=== PATIENT | female | born 1935 | race Caucasian/White ===

== ENCOUNTER 2016-10-19 17:52 | Inpatient (IN) | payer MEDICARE, MEDICAID ==
[~2016-10-19] VITALS: Ht 157.5 cm; Wt 76.2 kg
[2016-10-19 18:39] VITALS: BP 138/85
[2016-10-19] MEDS ORDERED: Morphine Sulfate 2mg/ml Inj IVP ONE (18:45)
[2016-10-19] MEDS ORDERED: Famotidine 20 MG/ 2ML VIAL IVP ONE (18:45)
[2016-10-19 18:49] LABS: BASOPHILS % (AUTO) 0.6 % (0.0-2.0); EOSINOPHILS % (AUTO) 2.1 % (0.0-3.0); LYMPHOCYTES % (AUTO) 11.7 % (20.0-45.0); MEAN CORPUSCULAR HEMOGLOBIN 32.6 PG (27.0-31.0); MEAN CORPUSCULAR HGB CONC 34.4 G/DL (32.0-36.0); MEAN CORPUSCULAR VOLUME 95 FL (80-99); MEAN PLATELET VOLUME 6.2 FL (6.5-10.1); MONOCYTES % (AUTO) 3.8 % (1.0-10.0); NEUTROPHILS % (AUTO) 81.8 % (45.0-75.0); PLATELET COUNT 145 K/UL (150-450); RED BLOOD COUNT 4.08 M/UL (4.20-5.40); RED CELL DISTRIBUTION WIDTH 12.5 % (11.6-14.8); WHITE BLOOD COUNT 9.6 K/UL (4.8-10.8)
[2016-10-19 19:15] VITALS: BP 125/68
[2016-10-19 19:17] LABS: TROPONIN I < 0.30 ng/mL (<=0.30)
[2016-10-19 19:20] LABS: ALANINE AMINOTRANSFERASE 12 U/L (3-33); ALBUMIN/GLOBULIN RATIO 1.2 (1.0-2.7); ANION GAP 19 (5-15); ASPARTATE AMINO TRANSFERASE 24 U/L (5-40); CALCIUM 10.6 mg/dL (8.6-10.2); CARBON DIOXIDE 26 mEQ/L (20-30); CHLORIDE 96 mEQ/L (98-107); CREATININE 1.7 mg/dL (0.5-0.9); HEMOLYSIS 25; LIPASE 31 U/L (< 60); POTASSIUM 3.9 mEQ/L (3.4-4.9); SODIUM 141 mEQ/L (135-145); TOTAL PROTEIN 8.5 g/dL (6.6-8.7)
[2016-10-19 19:30] LABS: CKMB 4.3 ng/mL (< 3.8)
[2016-10-19] MEDS ORDERED: LABETALOL HCL100 MG ORAL (20:30)
[2016-10-19] MEDS ORDERED: ZYPREXA2.5 MG ORAL (20:30)
[2016-10-19] MEDS ORDERED: TORSEMIDE20 MG ORAL (20:30)
[2016-10-19] MEDS ORDERED: PANTOPRAZOLE SO40 MG ORAL (20:34)
[2016-10-19] MEDS ORDERED: VOLTAREN100 G1 TP (20:37)
[2016-10-19] MEDS ORDERED: LIDODERM700 M1 TOPIC (20:37)
[2016-10-19] MEDS ORDERED: LORAZEPAM0.5 MG ORAL (20:42)
[2016-10-19] MEDS ORDERED: LEVETIRACETAM500 MG ORAL (20:42)
[2016-10-19] MEDS ORDERED: LINZESS145 MCG PO (20:42)
[2016-10-19 20:44] LABS: APPEARANCE,URINE CLEAR; KETONES,URINE NEGATIVE (NEGATIVE); LEUKOCYTE ESTERASE ,URINE 1+ (NEGATIVE); NITRITE,URINE NEGATIVE (NEGATIVE); PH,URINE 5 (4.5-8.0); PROTEIN,URINE NEGATIVE (NEGATIVE); UROBILINOGEN,URINE NORMAL MG/DL (0.0-1.0)
[2016-10-19] MEDS ORDERED: NYSTATIN-TRIAMC15 G2 TP (20:47)
[2016-10-19] MEDS ORDERED: ZOLOFT100 MG ORAL (20:47)
[2016-10-19] MEDS ORDERED: FERROUS SULFAT325 MG ORAL (20:47)
[2016-10-19] MEDS ORDERED: MAGNESIUM DR64 MG PO (20:47)
[2016-10-19] MEDS ORDERED: NEOMYC-POLYM-D3.5 G1 OP (20:49)
[2016-10-19 20:51] LABS: BACTERIA,URINE FEW /HPF; RBC,URINE 0-2 /HPF (0 - 2); SQUAMOUS EPITHELIAL CELL,UR FEW /LPF (NONE/OCC)
[2016-10-19] MEDS ORDERED: Morphine Sulfate 2mg/ml Inj IVP PRN (22:00)
[2016-10-19] MEDS ORDERED: DuoNeb 0.5-3(2.5)mg/3ml neb HHN PRN (22:00)
[2016-10-19] MEDS ORDERED: Nitroglycerin Subl 0.4mg tab (Bottle Of 25) SL PRN (22:00)
[2016-10-19] MEDS ORDERED: Ketorolac 30mg Inj IV PRN ×2 (22:00→23:15)
[2016-10-19] MEDS ORDERED: Diltiazem 25mg/5ml IV PRN (22:00)
[2016-10-19] MEDS ORDERED: Enalaprilat 2.5mg/2ml Inj IV PRN (22:00)
[2016-10-19] MEDS ORDERED: Miralax 17gm pkt ORAL PRN (22:00)
[2016-10-19 22:45] VITALS: BP 126/69
--- NOTE | 2016-10-19 23:18 | Emergency Room Report ---
History of Present Illness General Chief Complaint: Abdominal Pain Source: Patient, Family Member Present Illness HPI 81-year-old female presents ED complaining of abdominal pain and vomiting. Son at bedside states symptoms started today. Pain is a 6/10, sharp, nonradiating. Notes multiple episodes of vomiting. Denies fevers or chills. Denies chest pain or shortness of breath. Son states patient has prior history of hernia surgery. No aggravating or leading factors. Denies any other associated symptoms Allergies: Coded Allergies: No Known Allergies (Unverified , 10/19/16) Patient History Past Medical History: CVA/TIA Past Surgical History: hysterectomy, other - hernia Pertinent Family History: none Social History: Denies: alcohol use, drug use, smoking Now: No Immunizations: UTD Reviewed Nursing Documentation: PMH: Agreed, PSxH: Agreed Nursing Documentation-PMH Hx Cancer: Yes - HYSTERECTOMY Hx Cerebrovascular Accident: Yes Review of Systems All Other Systems: negative except mentioned in HPI Physical Exam Vital Signs Date Time Temp Pulse Resp B/P Pulse Ox O2 Delivery O2 Flow Rate FiO2 10/19/16 17:47 97 17 138/85 92 Room Air 10/19/16 19:15 97.7 Sp02 EP Interpretation: reviewed, normal General Appearance: obese Head: normocephalic Eyes: bilateral eye PERRL, bilateral eye normal inspection ENT: normal ENT inspection Neck: normal inspection Respiratory: chest non-tender, lungs clear, normal breath sounds, speaking full sentences Cardiovascular #1: regular rate, rhythm, no edema Gastrointestinal: normal bowel sounds, soft, non-distended, no guarding, no rebound, tenderness Rectal: deferred Genitourinary: no CVA tenderness Musculoskeletal: normal inspection Neurologic: alert, oriented x3, responsive, motor strength/tone normal, sensory intact, speech normal Psychiatric: normal inspection Skin: normal inspection Lymphatic: normal inspection Medical Decision Making Diagnostic Impression: Primary Impression: Small bowel obstruction Additional Impression: ARF (acute renal failure) Qualified Codes: N17.9 - Acute kidney failure, unspecified ER Course Hospital Course 81-year-old female presents to ED with abdominal pain and vomiting. History of hernia repair Differential diagnoses include: BPH, cystitis, pyelonephritis, kidney stone,SBO Clinical course Patient placed on stretcher. front desk monitor. After initial history and physical I ordered labs, IV fluids, UA, pain medication and CT scan Labs - no leukocytosis, Hb/Hct stable. BUN/Cr elevated EKG - NSr, no acute changes interpreted by me CT abdomen and pelvis - Multiple hernias, SBO with transition point in RLQ Using direct pressure I was able to locate site of hernia and was able to reduce without difficulty Patient refused NG tube Case discussed with Dr. Dunbar and he agreed to accept the patient to his service for further care and support. Dr. Duran agreed to consult on case I feel this is a highly complex case requiring extensive working including EKG/ Rhythm strip, Xray/CT/US, Blood/urine lab work, repeat exams while in ED, and administration of strong opiates/narcotics for pain control, admission to hospital or close patient follow up. Diagnosis - small bowel obstruction. ARF Patient admitted to floor in serious condition Labs Test 10/19/16 18:34 10/19/16 20:07 White Blood Count 9.6 K/UL (4.8-10.8) Red Blood Count 4.08 M/UL (4.20-5.40) Hemoglobin 13.3 G/DL (12.0-16.0) Hematocrit 38.7 % (37.0-47.0) Mean Corpuscular Volume 95 FL (80-99) Mean Corpuscular Hemoglobin 32.6 PG (27.0-31.0) Mean Corpuscular Hemoglobin Concent 34.4 G/DL (32.0-36.0) Red Cell Distribution Width 12.5 % (11.6-14.8) Platelet Count 145 K/UL (150-450) Mean Platelet Volume 6.2 FL (6.5-10.1) Neutrophils (%) (Auto) 81.8 % (45.0-75.0) Lymphocytes (%) (Auto) 11.7 % (20.0-45.0) Monocytes (%) (Auto) 3.8 % (1.0-10.0) Eosinophils (%) (Auto) 2.1 % (0.0-3.0) Basophils (%) (Auto) 0.6 % (0.0-2.0) Sodium Level 141 mEQ/L (135-145) Potassium Level 3.9 mEQ/L (3.4-4.9) Chloride Level 96 mEQ/L (98-107) Carbon Dioxide Level 26 mEQ/L (20-30) Anion Gap 19 (5-15) Blood Urea Nitrogen 35 mg/dL (7-23) Creatinine 1.7 mg/dL (0.5-0.9) Estimat Glomerular Filtration Rate mL/min (>60) Glucose Level 162 mg/dL (74-106) Calcium Level 10.6 mg/dL (8.6-10.2) Total Bilirubin 0.5 mg/dL (0.0-1.2) Aspartate Amino Transf (AST/SGOT) 24 U/L (5-40) Alanine Aminotransferase (ALT/SGPT) 12 U/L (3-33) Alkaline Phosphatase 88 U/L (35-104) Creatine Kinase MB 4.3 ng/mL (< 3.8) Troponin I < 0.30 ng/mL (<=0.30) Total Protein 8.5 g/dL (6.6-8.7) Albumin 4.8 g/dL (3.5-5.2) Globulin 3.7 g/dL Albumin/Globulin Ratio 1.2 (1.0-2.7) Lipase 31 U/L (< 60) Urine Color Pale yellow Urine Appearance Clear Urine pH 5 (4.5-8.0) Urine Specific [place] 1.010 (1.005-1.035) Urine Protein Negative (NEGATIVE) Urine Glucose (UA) Negative (NEGATIVE) Urine Ketones Negative (NEGATIVE) Urine Occult Blood 1+ (NEGATIVE) Urine Nitrite Negative (NEGATIVE) Urine Bilirubin Negative (NEGATIVE) Urine Urobilinogen Normal MG/DL (0.0-1.0) Urine Leukocyte Esterase 1+ (NEGATIVE) Urine RBC 0-2 /HPF (0 - 2) Urine WBC 2-4 /HPF (0 - 2) Urine Squamous Epithelial Cells Few /LPF (NONE/OCC) Urine Bacteria Few /HPF (NONE) EKG Diagnostic Results Rate: normal Rhythm: NSR ST Segments: no acute changes ASA given to the pt in ED: No Rhythm Strip Diag. Results EP Interpretation: yes Rhythm: NSR, no PVC's, no ectopy CT/MRI/US Diagnostic Results CT/MRI/US Diagnostic Results : Imaging Test Ordered: CT A/P Impression multiple hernias, one with dilated loops of bowel - site of obstruction Last Vital Signs Date Time Temp Pulse Resp B/P Pulse Ox O2 Delivery O2 Flow Rate FiO2 10/19/16 22:45 97.7 74 15 126/69 96 Room Air Status: improved Disposition: ADMITTED INPATIENT Condition: Serious Referrals: KATI ZAVALA (PCP) YONG BRUNO M.D. Oct 19, 2016 23:18
[2016-10-20] VITALS: BP 114/69
[2016-10-20] MEDS: D5 1/2NS 1,000 ML IV SCH ×2 (01:50→18:05)
[2016-10-20] MEDS ORDERED: ATIVAN0.5 MG ORAL (03:31)
[2016-10-20 04:00] VITALS: BP 113/53
--- NOTE | 2016-10-20 07:42 | General Surgery Progress Note ---
General Surgery-Progress Note Subjective Procedure Performed none Chief Complaint: abdominal pain, emesis Symptoms: improved Additional Comments pt had abd pain and incarcerated hernia in RLQ from old ML incision and mesh repair in past. Reduced by ED doctor with excellent results. Now comfortable , hungry, does not want surgery nor does her son. Pt known to me for ML sound sinus after hernia repair, re-operated to fix the problem with mesh repair Hx tongue surgery with some speaking difficulty Objective Last 24 Hour Vital Signs Date Time Temp Pulse Resp B/P Pulse Ox O2 Delivery O2 Flow Rate FiO2 10/20/16 04:00 97.7 62 15 113/53 96 Simple Mask 2.0 10/20/16 04:00 72 10/20/16 01:00 Nasal Cannula 2.0 28 10/20/16 01:00 97 Nasal Cannula 2.0 28 10/20/16 01:00 72 20 Nasal Cannula 2.0 28 10/20/16 00:00 97.7 86 15 114/69 96 Room Air 10/20/16 00:00 79 10/19/16 23:20 79 10/19/16 22:45 97.7 74 15 126/69 96 Room Air 10/19/16 22:43 97.7 82 15 125/68 96 Room Air 10/19/16 19:15 97.7 82 15 125/68 96 Room Air 10/19/16 18:39 17 138/85 92 Room Air 10/19/16 17:47 97 17 138/85 92 Room Air I&O Intake and Output 10/19/16 10/20/16 19:00 07:00 Intake Total 700 ml Balance 700 ml IV Total 200 ml Other 500 ml Cardiovascular: RSR Respiratory: clear Abdomen: soft, non-tender - RLQ hernia reducible, non tender. Extremities: no edema Laboratory Tests Test 10/19/16 18:34 10/19/16 20:07 White Blood Count 9.6 K/UL (4.8-10.8) Red Blood Count 4.08 M/UL (4.20-5.40) L Hemoglobin 13.3 G/DL (12.0-16.0) Hematocrit 38.7 % (37.0-47.0) Mean Corpuscular Volume 95 FL (80-99) Mean Corpuscular Hemoglobin 32.6 PG (27.0-31.0) H Mean Corpuscular Hemoglobin Concent 34.4 G/DL (32.0-36.0) Red Cell Distribution Width 12.5 % (11.6-14.8) Platelet Count 145 K/UL (150-450) L Mean Platelet Volume 6.2 FL (6.5-10.1) L Neutrophils (%) (Auto) 81.8 % (45.0-75.0) H Lymphocytes (%) (Auto) 11.7 % (20.0-45.0) L Monocytes (%) (Auto) 3.8 % (1.0-10.0) Eosinophils (%) (Auto) 2.1 % (0.0-3.0) Basophils (%) (Auto) 0.6 % (0.0-2.0) Sodium Level 141 mEQ/L (135-145) Potassium Level 3.9 mEQ/L (3.4-4.9) Chloride Level 96 mEQ/L (98-107) L Carbon Dioxide Level 26 mEQ/L (20-30) Anion Gap 19 (5-15) H Blood Urea Nitrogen 35 mg/dL (7-23) H Creatinine 1.7 mg/dL (0.5-0.9) H Estimat Glomerular Filtration Rate mL/min (>60) Glucose Level 162 mg/dL (74-106) H Calcium Level 10.6 mg/dL (8.6-10.2) H Total Bilirubin 0.5 mg/dL (0.0-1.2) Aspartate Amino Transf (AST/SGOT) 24 U/L (5-40) Alanine Aminotransferase (ALT/SGPT) 12 U/L (3-33) Alkaline Phosphatase 88 U/L (35-104) Creatine Kinase MB 4.3 ng/mL (< 3.8) H Troponin I < 0.30 ng/mL (<=0.30) Total Protein 8.5 g/dL (6.6-8.7) Albumin 4.8 g/dL (3.5-5.2) Globulin 3.7 g/dL Albumin/Globulin Ratio 1.2 (1.0-2.7) Lipase 31 U/L (< 60) Urine Color Pale yellow Urine Appearance Clear Urine pH 5 (4.5-8.0) Urine Specific [place] 1.010 (1.005-1.035) Urine Protein Negative (NEGATIVE) Urine Glucose (UA) Negative (NEGATIVE) Urine Ketones Negative (NEGATIVE) Urine Occult Blood 1+ (NEGATIVE) H Urine Nitrite Negative (NEGATIVE) Urine Bilirubin Negative (NEGATIVE) Urine Urobilinogen Normal MG/DL (0.0-1.0) Urine Leukocyte Esterase 1+ (NEGATIVE) H Urine RBC 0-2 /HPF (0 - 2) Urine WBC 2-4 /HPF (0 - 2) Urine Squamous Epithelial Cells Few /LPF (NONE/OCC) Urine Bacteria Few /HPF (NONE) Imaging CAT scan abd: few minimally dilated SB loops, no bonnie SBO, RLQ hernia with bowel in it, right inguinal hernia, no bowel. sca Assessment Additional Comments Partial SBO secondary to incarcerated but reduced Right lower abdominal ventral hernia. Plan Additional Comments Pt and son refuse any surgery at this time, pt agrees if anyfurther pain or obstructive sx, then will need surgery with slightly higher risks of complications BIMAL ITDWELL Oct 20, 2016 07:42
[2016-10-20 08:00] VITALS: BP 105/57
[2016-10-20] MEDS: Heparin 5000 units/ml inj SUBQ SCH ×2 (09:35→21:00)
[2016-10-20] MEDS: Aspirin Baby 81mg ORAL SCH (09:35)
--- NOTE | 2016-10-20 11:04 | Diagnostic Imaging Report ---
Indications: Abdominal pain and vomiting Technique: Continuous helical CT imaging of the orbits was performed with automatic exposure control on a Siemens sensation [address] scanner. Axial and coronal images were reconstructed at 3 mm slice thickness. No IV contrast administered per requesting physician's order, despite no contraindications listed. No oral contrast administered presumably due to vomiting CTDI volume(s): 19 mGy Total DLP: 934 mGy-cm Findings: Comparison: None Distal thoracic esophagus, stomach, most of small bowel are moderately dilated and fluid-filled. Suggestion of hiatal hernia. 1 cm Calcific foreign body within duodenal lumen. Dilated small bowel loop incorporated into a left inguinal hernia with focal narrowing of incorporated loop as exit hernia sac. Both afferent and apparent segments dilated. Dilated loop of distal ileum incorporated into the more caudal of 2 adjacent right lower quadrant ventral hernias with abrupt transition to nondilated as it exits the hernia sac. Afferent small bowel dilated. Efferent terminal ileum collapsed. Gas and feces throughout nondilated colon to rectum. Short segment of proximal transverse colon incorporated into the more cephalad of 2 adjacent right lower quadrant ventral hernias. Multiple left colonic diverticula. No obvious mural thickening, adjacent stranding, extraluminal gas or fluid collections. 5 cm circumscribed, ovoid, low-attenuation mass in left adnexal region, containing calcifications. Presence or absence of uterus uncertain. Multiple surgical clips along both pelvic sidewalls. Scattered arterial mural calcifications. Vascular patency indeterminate. Remainder visualized abdominopelvic anatomy demonstrates no other obvious acute abnormality. Irregularly increased interstitial markings with heterogeneous parenchymal attenuation, interlobular septal thickening and honeycombing in both lung bases. Multilevel disc space narrowing with marginal osteophyte formation lumbar, lower thoracic spine. Mild compression fractures. Plate T10 vertebral body with 10-20% height loss. IMPRESSION: Findings compatible small bowel obstruction most likely secondary to incarceration of distal ileum in more caudal of 2 adjacent right lower quadrant ventral hernias. No overt evidence of strangulation. Small bowel incorporated into left inguinal hernia with focal narrowing of the exiting segment, may contribute to obstruction. No overt evidence of strangulation. Colonic segments incorporated into the more cephalad of 2 adjacent right lower quadrant ventral hernias. No evidence of associated obstruction or circulation. No other evidence of acute abdominopelvic disease, with limitation as described. Subtle but potentially significant abnormalities may be missed. Repeat CT scan with full oral and IV contrast preparation recommended for more complete evaluation, as clinically indicated Evidence of previous pelvic surgery--query radical hysterectomy. Correlate historically. 5 cm left adnexal mass of uncertain significance/etiology. This may represent uterine fibroid or, in the setting of prior hysterectomy, ovarian mass which could be benign or neoplastic. Ingested tablet in duodenal lumen Arteriosclerosis Colonic diverticulosis Pulmonary bibasal interstitial disease/fibrosis. Superimposed acute infiltrate not excludable. Degenerative spondylosis T10 vertebral body compression fracture, mild, probably old Critical results discussed with Dr. Anna, ER physician, by telephone 10/19/16 at approximately 2100
[2016-10-20] MEDS ORDERED: D5 1/2NS 1000ml IV ONE (11:13)
--- NOTE | 2016-10-20 11:28 | Consultation ---
History of Present Illness General Date patient seen: Oct 20, 2016 Chief Complaint: Abdominal Pain Referring physician: Dr. Helms Reason for Consultation: Inpatient manageemnt Present Illness HPI 81-year-old female with hx of CVA, HTN, Asthma presented to ED complaining of abdominal pain and vomiting started on day of admission. Pain is a 6/10, sharp , nonradiating. Notes multiple episodes of vomiting. Denies fevers or chills. Denies chest pain or shortness of breath. Son states patient has prior history of hernia surgery. No aggravating or leading factors. Denies any other associated symptoms. Pt is admitted to telemetry for further evaluation. Allergies: Coded Allergies: No Known Allergies (Unverified , 10/19/16) Medication History Scheduled Diclofenac Sodium (Voltaren), 3 GM TP QID, (Reported) Ferrous Sulfate* (Ferrous Sulfate*), 325 MG ORAL THREE TIMES A DAY, (Reported) Labetalol Hcl* (Normodyne*), 100 MG ORAL DAILY, (Reported) Levetiracetam* (Levetiracetam*), 1,000 MG ORAL TWICE A DAY, (Reported) Linaclotide (Linzess), 145 MCG PO DAILY, (Reported) Magnesium Chloride (Magnesium Dr), 64 MG PO BID, (Reported) Nystatin/Triamcin (Nystatin-Triamcinolone Cream), 15 GM TP BID, (Reported) Olanzapine* (Zyprexa*), 2.5 MG ORAL DAILY, (Reported) Pantoprazole* (Pantoprazole*), 40 MG ORAL DAILY, (Reported) Sertraline Hcl* (Zoloft*), 100 MG ORAL DAILY, (Reported) Torsemide* (Demadex*), 10 MG ORAL DAILY, (Reported) Scheduled PRN Lorazepam* (Ativan*), 0.5 MG ORAL BID PRN for For Anxiety, (Reported) Discontinued Medications Lidocaine (Lidoderm), 1 PATCH TOPIC DAILY PRN for For Pain, (Reported) Discontinued Reason: Pt stopped taking med Catracho/Polymyx B Sulf/Dexameth (Npdngo-Xiiwi-Ldaljew Eye Ointm), 3.5 GM OP QHS, ( Reported) Discontinued Reason: Medication dose changed Patient History Healthcare decision maker Sebas Craven Resuscitation status Full Code Advanced Directive on File Past Medical/Surgical History Past Medical/Surgical History: (1) History of CVA (cerebrovascular accident) (2) HTN (hypertension) Review of Systems All Other Systems: negative except mentioned in HPI Physical Exam General Appearance: WD/WN Lines, tubes and drains: peripheral HEENT: normocephalic, atraumatic Neck: non-tender, normal alignment Respiratory/Chest: chest wall non-tender, lungs clear Cardiovascular/Chest: normal peripheral pulses, normal rate, no JVD Abdomen: normal bowel sounds Last 24 Hour Vital Signs Date Time Temp Pulse Resp B/P Pulse Ox O2 Delivery O2 Flow Rate FiO2 10/20/16 08:00 97.9 75 17 105/57 97 Nasal Cannula 2.0 10/20/16 07:27 98 Nasal Cannula 2.0 28 10/20/16 07:27 72 20 Nasal Cannula 2.0 10/20/16 07:27 Nasal Cannula 2.0 10/20/16 04:00 97.7 62 15 113/53 96 Simple Mask 2.0 10/20/16 04:00 72 10/20/16 01:00 Nasal Cannula 2.0 28 10/20/16 01:00 97 Nasal Cannula 2.0 28 10/20/16 01:00 72 20 Nasal Cannula 2.0 28 10/20/16 00:00 97.7 86 15 114/69 96 Room Air 10/20/16 00:00 79 10/19/16 23:20 79 10/19/16 22:45 97.7 74 15 126/69 96 Room Air 10/19/16 22:43 97.7 82 15 125/68 96 Room Air 10/19/16 19:15 97.7 82 15 125/68 96 Room Air 10/19/16 18:39 17 138/85 92 Room Air 10/19/16 17:47 97 17 138/85 92 Room Air Intake and Output 10/19/16 10/20/16 19:00 07:00 Intake Total 750 ml Balance 750 ml IV Total 250 ml Other 500 ml Laboratory Tests Test 10/19/16 18:34 10/19/16 20:07 White Blood Count 9.6 K/UL (4.8-10.8) Red Blood Count 4.08 M/UL (4.20-5.40) L Hemoglobin 13.3 G/DL (12.0-16.0) Hematocrit 38.7 % (37.0-47.0) Mean Corpuscular Volume 95 FL (80-99) Mean Corpuscular Hemoglobin 32.6 PG (27.0-31.0) H Mean Corpuscular Hemoglobin Concent 34.4 G/DL (32.0-36.0) Red Cell Distribution Width 12.5 % (11.6-14.8) Platelet Count 145 K/UL (150-450) L Mean Platelet Volume 6.2 FL (6.5-10.1) L Neutrophils (%) (Auto) 81.8 % (45.0-75.0) H Lymphocytes (%) (Auto) 11.7 % (20.0-45.0) L Monocytes (%) (Auto) 3.8 % (1.0-10.0) Eosinophils (%) (Auto) 2.1 % (0.0-3.0) Basophils (%) (Auto) 0.6 % (0.0-2.0) Sodium Level 141 mEQ/L (135-145) Potassium Level 3.9 mEQ/L (3.4-4.9) Chloride Level 96 mEQ/L (98-107) L Carbon Dioxide Level 26 mEQ/L (20-30) Anion Gap 19 (5-15) H Blood Urea Nitrogen 35 mg/dL (7-23) H Creatinine 1.7 mg/dL (0.5-0.9) H Estimat Glomerular Filtration Rate mL/min (>60) Glucose Level 162 mg/dL (74-106) H Calcium Level 10.6 mg/dL (8.6-10.2) H Total Bilirubin 0.5 mg/dL (0.0-1.2) Aspartate Amino Transf (AST/SGOT) 24 U/L (5-40) Alanine Aminotransferase (ALT/SGPT) 12 U/L (3-33) Alkaline Phosphatase 88 U/L (35-104) Creatine Kinase MB 4.3 ng/mL (< 3.8) H Troponin I < 0.30 ng/mL (<=0.30) Total Protein 8.5 g/dL (6.6-8.7) Albumin 4.8 g/dL (3.5-5.2) Globulin 3.7 g/dL Albumin/Globulin Ratio 1.2 (1.0-2.7) Lipase 31 U/L (< 60) Urine Color Pale yellow Urine Appearance Clear Urine pH 5 (4.5-8.0) Urine Specific [place] 1.010 (1.005-1.035) Urine Protein Negative (NEGATIVE) Urine Glucose (UA) Negative (NEGATIVE) Urine Ketones Negative (NEGATIVE) Urine Occult Blood 1+ (NEGATIVE) H Urine Nitrite Negative (NEGATIVE) Urine Bilirubin Negative (NEGATIVE) Urine Urobilinogen Normal MG/DL (0.0-1.0) Urine Leukocyte Esterase 1+ (NEGATIVE) H Urine RBC 0-2 /HPF (0 - 2) Urine WBC 2-4 /HPF (0 - 2) Urine Squamous Epithelial Cells Few /LPF (NONE/OCC) Urine Bacteria Few /HPF (NONE) Height (Feet): 5 Height (Inches): 2.00 Weight (Pounds): 168 Medications Current Medications Medications (Trade) Dose Ordered Sig/Lolly Route PRN Reason Start Time Stop Time Status Last Admin Dose Admin Acetaminophen (Tylenol) 650 mg Q4H PRN ORAL FEVER 10/19/16 22:00 11/18/16 21:59 Albuterol/ Ipratropium (DuoNeb 0.5-3(2.5)mg/3ml) 3 ml EVERY 4 HOURS PRN HHN Shortness of Breath 10/19/16 22:00 10/24/16 21:59 Aspirin (ASA) 162 mg DAILY ORAL 10/20/16 09:00 11/19/16 08:59 10/20/16 09:35 Dextrose/Sodium Chloride (D5 0.45% NS) 1,000 ml @ 50 mls/hr Q20H IV 10/19/16 22:00 11/18/16 21:59 10/20/16 01:50 Diltiazem HCl (Cardizem) 10 mg EVERY HOUR PRN IV heart rate more than 120, 10/19/16 22:00 11/18/16 21:59 Enalaprilat (Vasotec) 2.5 mg EVERY 6 HOURS PRN IV sbp more than 160 10/19/16 22:00 11/18/16 21:59 Heparin Sodium (Porcine) 5000 units 5,000 units EVERY 12 HOURS SUBQ 10/20/16 09:00 11/19/16 08:59 Ketorolac Tromethamine (Toradol 30mg) 30 mg Q6HR PRN IV moderate pain ( 4-6) 10/19/16 23:15 10/24/16 21:59 UNV Morphine Sulfate (Morphine Sulfate) 2 mg EVERY 4 HOURS PRN IVP severe Pain (Pain Scale 7-10) 10/19/16 22:00 10/26/16 21:59 Nitroglycerin (Ntg) 0.4 mg Every 5 Minutes PRN SL Prn Chest Pain 10/19/16 22:00 11/18/16 21:59 Ondansetron HCl (Zofran) 4 mg Q6H PRN IVP Nausea & Vomiting 10/19/16 22:00 11/18/16 21:59 Pantoprazole (Protonix) 40 mg DAILY ORAL 10/20/16 09:00 11/19/16 08:59 10/20/16 09:35 Polyethylene Glycol (Miralax) 17 gm DAILYPRN PRN ORAL Constipation 10/19/16 22:00 11/18/16 21:59 Temazepam (Restoril) 15 mg HSPRN PRN ORAL Insomnia 10/19/16 22:00 10/26/16 21:59 Assessment/Plan Problem List: (1) Intractable abdominal pain ICD Codes: R10.9 - Unspecified abdominal pain SNOMED: 96876485, 993946603 (2) Intractable nausea and vomiting ICD Codes: R11.2 - Nausea with vomiting, unspecified SNOMED: 356085417, 723124698 (3) HTN (hypertension) ICD Codes: I10 - Essential (primary) hypertension SNOMED: 29642430 (4) History of CVA (cerebrovascular accident) ICD Codes: Z86.73 - Personal history of transient ischemic attack (TIA), and cerebral infarction without residual deficits SNOMED: 131509912 Assessment/Plan NPO IV fluids GI/surgery evaluation check electrolytes symptomatic treatment hold bp meds since BP is low ( ?) dvt prophylaxis AVA LANDON Oct 20, 2016 11:28
[2016-10-20 12:04] LABS: URIC ACID 8.6 mg/dL (3.0-7.5)
[2016-10-20 12:09] VITALS: BP 120/49
[2016-10-20] MEDS: OLANZapine 2.5mg tab ORAL SCH (14:45)
--- NOTE | 2016-10-20 15:01 | Cardiology Report ---
APPROVED REPORT EXAM: Two-dimensional and M-mode echocardiogram with Doppler and color Doppler. INDICATION Left ventricular function M-Mode DIMENSIONS IVSd1.0 (0.7-1.1cm)Left Atrium (MM)4.0 (1.6-4.0cm) LVDd4.6 (3.5-5.6cm)Aortic Root2.6 (2.0-3.7cm) PWd0.7 (0.7-1.1cm)Aortic Cusp Exc.1.0 (1.5-2.0cm) LVDs3.0 (2.5-4.0cm) PWs1.0 cm Normal left ventricular chamber size, systolic function and wall motion. Left ventricular ejection fraction estimated to be 55-60%. Mild left ventricular hypertrophy. No evidence of pericardial fat or effusion. Right cardiac chamber sizes are within normal limits. Moderate left atrial enlargement by 2D. Aortic valve calcification with decreased cusp excursion c/w severe aortic stenosis. Thickened mitral valve leaflets with normal excursion. Mild mitral annulus and aortic root calcification. Pulmonic valve not well visualized. Normal tricuspid valve structure. IVC is normal in size with physiologic collapse. A color flow and spectral Doppler study was performed and revealed: No aortic regurgitation. Peak aortic valve gradient of 112 mmHg and a mean of 58 mmHg. Aortic valve area 0.8 cm2 calculated by continuity equation. Trace mitral regurgitation. Left ventricular diastolic dysfunction grade 1. Mild tricuspid regurgitation. Tricuspid systolic velocities suggests peak right ventricular systolic pressure of 72 mmHg Consistent with severe pulmonary hypertension. Clinical criteria: ZEE Martinez and were aware on 10/20/2016
--- NOTE | 2016-10-20 15:34 | Diagnostic Imaging Report ---
Indications: Maxime pain Technique: 2 views of the abdomen. Findings: Comparison: 05/09/2005. The bowel gas pattern remains unremarkable. No intraperitoneal free air, bowel wall thickening, or air-fluid levels are demonstrated. Small rounded calcifications again noted in right brianna- pelvis, compatible with phleboliths (centrally) and injection granulomas (laterally). No abnormal calcific or soft tissue densities are demonstrated. Multilevel disc space narrowing with marginal osteophyte formation again noted in lumbar, lower thoracic spine. Associated dextroscoliosis has increased. Pelvic surgical clips again noted. IMPRESSION: No evidence of acute abdominopelvic disease, unchanged Progression of scoliosis Other stable chronic changes as described.
--- NOTE | 2016-10-20 15:37 | History & Physical ---
History and Physical History & Physicial Dictated for Int Med-Dr Dunbar no. [id number]. RICO OLSON Oct 20, 2016 15:37
[2016-10-20 16:00] VITALS: BP 111/51
[2016-10-20 20:00] VITALS: BP 98/56
[2016-10-20 20:33] LABS: APPEARANCE,URINE CLEAR; KETONES,URINE NEGATIVE (NEGATIVE); LEUKOCYTE ESTERASE ,URINE 2+ (NEGATIVE); NITRITE,URINE NEGATIVE (NEGATIVE); PH,URINE 6 (4.5-8.0); PROTEIN,URINE 1+ (NEGATIVE); UROBILINOGEN,URINE NORMAL MG/DL (0.0-1.0)
--- NOTE | 2016-10-20 21:01 | History and Physical Report ---
DATE OF ADMISSION: 10/19/2016 CHIEF COMPLAINT: The patient is an 81-year-old white female who presents with complaint of abdominal pain. HISTORY OF PRESENT ILLNESS: The patient has a history of abdominal surgery. The patient is also somewhat difficult to understand. The patient had previous oral surgery and her speech is slightly dysarthric. The patient presented to [facility] emergency room complaining of one-day history of abdominal pain. A CAT scan revealed small bowel obstruction with incarcerated hernia. The patient was admitted for small bowel obstruction. REVIEW OF SYSTEMS: Constitutional: The patient denies weight loss or weight gain. The patient denies fevers or chills. HEENT: The patient denies ear or throat pain. Cardiovascular: The patient denies palpitations or chest pain. Chest: The patient denies wheeze or shortness of breath. Abdominal: The patient denies nausea, vomiting, diarrhea, or constipation. The patient does complain of abdominal pain as above. Neuromuscular: The patient denies seizures or generalized weakness. Genitourinary: The patient denies dysuria or increased frequency of urination. PAST MEDICAL HISTORY: Significant for, 1. Hypertension. 2. History of cerebrovascular accident. PAST SURGICAL HISTORY: Significant for, 1. Jaw surgery. 2. Total abdominal hysterectomy. CURRENT MEDICATIONS: 1. Voltaren 3 g p.o. 4 times daily. 2. Iron sulfate 325 mg 1 tablet p.o. 3 times daily. 3. Labetalol 100 mg 1 tablet p.o. daily. 4. Keppra 1000 mg p.o. twice daily. 5. Linzess 145 mcg p.o. daily. 6. Ativan 0.5 mg 1 tablet p.o. twice daily p.r.n. 7. Magnesium 64 mg 1 tablet p.o. twice daily. 8. Nystatin cream. 9. Zyprexa 2.5 mg 1 tablet p.o. daily. 10. Protonix 40 mg 1 tablet p.o. daily. 11. Zoloft 100 mg 1 tablet p.o. daily. 12. Demadex 10 mg 1 tablet p.o. daily. ALLERGIES: No known drug allergies. SOCIAL HISTORY: The patient is and lives with a friend. The patient denies tobacco or alcohol use. The patient has a grown son, Sebas Craven. PHYSICAL EXAMINATION: VITAL SIGNS: Temperature 97.7, respirations 15, pulse 62, and blood pressure 113/53. GENERAL: The patient is a well-developed, well-nourished white female, in no apparent distress. HEENT: Eyes, pupils are equal and responsive to light and accommodation. Extraocular movements are intact. NECK: Supple without lymphadenopathy. CHEST: Lungs are clear to auscultation bilaterally without wheezes or rales. CARDIOVASCULAR: Regular rhythm and rate. S1 and S2 are normal without murmurs, rubs, or gallops. ABDOMEN: Soft, nontender, and nondistended. Positive bowel sounds. No evidence of hepatosplenomegaly. Currently, no rebound or guarding noted. Presence of a midline scar noted. NEUROLOGIC: Cranial nerves II through XII are grossly intact without focal deficits. Motor strength is 5/5 bilaterally. LABORATORY AND DIAGNOSTIC DATA: WBC 9.6, hemoglobin 13.3, hematocrit 38.7, and platelets 145,000. Sodium 141, potassium 3.9, chloride 96, CO2 26, BUN 35, creatinine 1.7, and glucose 162. A CT scan of the abdomen revealed incarceration of the distal ileum with findings compatible with small-bowel obstruction. There is also small bowel incorporated into a left inguinal hernia. Diverticulosis. ASSESSMENT: This is an 81-year-old white female, 1. Abdominal pain. 2. Small bowel obstruction. 3. Left inguinal hernia. 4. Hypertension. 5. Seizure disorder. TREATMENT: 1. Small bowel obstruction. A General Surgery consultation has been obtained with Dr. Duran. The hernia was apparently reduced in the emergency room. The patient is currently tolerating a renal diet. The patient will not require surgery at this time. 2. Hypertension. The patient has been started intravenous Vasotec and Cardizem until the patient is tolerating p.o. 3. Seizure. The patient will remain on Keppra as above. Armen Helms M.D. DR: MALU JOB#: [id number] CC:
[2016-10-20 21:10] LABS: BACTERIA,URINE FEW /HPF; RBC,URINE 0-2 /HPF (0 - 2); SQUAMOUS EPITHELIAL CELL,UR FEW /LPF (NONE/OCC)
[2016-10-21] VITALS: BP 94/55
[2016-10-21 04:00] VITALS: BP 98/53
[2016-10-21 07:37] VITALS: BP 111/61
--- NOTE | 2016-10-21 07:55 | General Progress Note ---
Progress Note Progress Note Afebrile, comfortable , had 2 BM's. No N/V. VS stable. Abdomen: soft, nontender, chronically partially incarcerated hernia R lat abdomen, right inguinal reducible hernia Impression: resolved SBO secondary to incarcerated-reduced right abdominal hernia. Plan: pt wants me to talk with son and"think about " necessary hernia repairs ( 2). For now, continue diet anf OK to D/C home, see PMD, lots of liquids and f/u with me at the office for final planning with her son re: hernia repairs. BIMAL TIDWELL Oct 21, 2016 07:55
[2016-10-21 08:04] LABS: BASOPHILS % (AUTO) 1.1 % (0.0-2.0); EOSINOPHILS % (AUTO) 6.4 % (0.0-3.0); MEAN CORPUSCULAR HEMOGLOBIN 32.1 PG (27.0-31.0); MEAN CORPUSCULAR HGB CONC 32.7 G/DL (32.0-36.0); MEAN CORPUSCULAR VOLUME 98 FL (80-99); MEAN PLATELET VOLUME 8.3 FL (6.5-10.1); MONOCYTES % (AUTO) 6.2 % (1.0-10.0); NEUTROPHILS % (AUTO) 60.3 % (45.0-75.0); PLATELET COUNT 119 K/UL (150-450); RED BLOOD COUNT 3.31 M/UL (4.20-5.40); RED CELL DISTRIBUTION WIDTH 12.6 % (11.6-14.8); WHITE BLOOD COUNT 4.3 K/UL (4.8-10.8)
[2016-10-21 08:21] LABS: ANION GAP 14 (5-15); CALCIUM 8.5 mg/dL (8.6-10.2); CARBON DIOXIDE 26 mEQ/L (20-30); CHLORIDE 103 mEQ/L (98-107); CREATININE 1.3 mg/dL (0.5-0.9); HEMOLYSIS 6; POTASSIUM 3.9 mEQ/L (3.4-4.9); SODIUM 143 mEQ/L (135-145)
[2016-10-21] MEDS: Heparin 5000 units/ml inj SUBQ SCH ×2 (09:00→20:53)
--- NOTE | 2016-10-21 09:06 | Diagnostic Imaging Report ---
Indications: Abnormal renal function tests Technique: Transabdominal real-time grayscale and duplex Doppler imaging of the kidneys, retroperitoneum, and urinary bladder was performed Findings: Comparison: Abdominal ultrasound 05/09/05 Right kidney measures 8.6 cm in length. Diffuse cortical thinning and prominent sinus fat. Normal cortical echogenicity.. No stones, other focal lesions, hydronephrosis, or obvious perinephric abnormalities. Left kidney measures 9.1 cm in length. Diffuse cortical thinning and prominent sinus fat. Normal cortical echogenicity.. No stones, other focal lesions, hydronephrosis, or obvious perinephric abnormalities. The intrahepatic portion of inferior vena cava is patent and normal caliber. The urinary bladder is distended to approximately 418 mL post void residual volume.. IMPRESSION: Renal parenchymal changes likely senescent in nature Large post void residual in urinary bladder
--- NOTE | 2016-10-21 10:28 | Internal Med Progress Note ---
Subjective Date of Service: Oct 21, 2016 Physician Name Olson,Rico Attending Physician Macario Dunbar MD Current Medications Medications (Trade) Dose Ordered Sig/Lolly Route PRN Reason Start Time Stop Time Status Last Admin Dose Admin Acetaminophen (Tylenol) 650 mg Q4H PRN ORAL FEVER 10/19/16 22:00 11/18/16 21:59 Albuterol/ Ipratropium (DuoNeb 0.5-3(2.5)mg/3ml) 3 ml EVERY 4 HOURS PRN HHN Shortness of Breath 10/19/16 22:00 10/24/16 21:59 Aspirin (ASA) 162 mg DAILY ORAL 10/20/16 09:00 11/19/16 08:59 10/20/16 09:35 Dextrose/Sodium Chloride (D5 0.45% NS) 1,000 ml @ 50 mls/hr Q20H IV 10/19/16 22:00 11/18/16 21:59 10/20/16 18:05 Diltiazem HCl (Cardizem) 10 mg EVERY HOUR PRN IV heart rate more than 120, 10/19/16 22:00 11/18/16 21:59 Enalaprilat (Vasotec) 2.5 mg EVERY 6 HOURS PRN IV sbp more than 160 10/19/16 22:00 11/18/16 21:59 Heparin Sodium (Porcine) 5000 units 5,000 units EVERY 12 HOURS SUBQ 10/20/16 09:00 11/19/16 08:59 Ketorolac Tromethamine (Toradol 30mg) 30 mg Q6HR PRN IV moderate pain ( 4-6) 10/19/16 23:15 10/24/16 21:59 Levetiracetam (Keppra) 1,000 mg TWICE A DAY ORAL 10/20/16 18:00 11/19/16 17:59 10/20/16 18:05 Morphine Sulfate (Morphine Sulfate) 2 mg EVERY 4 HOURS PRN IVP severe Pain (Pain Scale 7-10) 10/19/16 22:00 10/26/16 21:59 Nitroglycerin (Ntg) 0.4 mg Every 5 Minutes PRN SL Prn Chest Pain 10/19/16 22:00 11/18/16 21:59 Olanzapine (ZyPREXA) 2.5 mg DAILY ORAL 10/20/16 14:00 11/19/16 13:59 10/20/16 14:45 Ondansetron HCl (Zofran) 4 mg Q6H PRN IVP Nausea & Vomiting 10/19/16 22:00 11/18/16 21:59 Pantoprazole (Protonix) 40 mg DAILY ORAL 10/20/16 09:00 11/19/16 08:59 10/20/16 09:35 Polyethylene Glycol (Miralax) 17 gm DAILYPRN PRN ORAL Constipation 10/19/16 22:00 11/18/16 21:59 Temazepam (Restoril) 15 mg HSPRN PRN ORAL Insomnia 10/19/16 22:00 10/26/16 21:59 Allergies: Coded Allergies: No Known Allergies (Unverified , 10/19/16) ROS Limited/Unobtainable: No Constitutional: Reports: no symptoms HEENT: Reports: no symptoms Cardiovascular: Reports: no symptoms Respiratory: Reports: no symptoms Gastrointestinal/Abdominal: Reports: no symptoms Genitourinary: Reports: no symptoms Neurologic/Psychiatric: Reports: no symptoms Subjective 81 YO F admitted with small bowel obstruction. [facility] Dunbar. Objective Last Vital Signs Date Time Temp Pulse Resp B/P Pulse Ox O2 Delivery O2 Flow Rate FiO2 10/21/16 07:37 96.3 64 18 111/61 99 Nasal Cannula 2.0 10/21/16 04:00 28 General Appearance: WD/WN, no apparent distress, alert EENT: PERRL/EOMI, normal ENT inspection Neck: non-tender, normal alignment, supple, normal inspection Cardiovascular: normal peripheral pulses, normal rate, regular rhythm, no gallop/murmur, no JVD Respiratory/Chest: chest wall non-tender, lungs clear, normal breath sounds, no respiratory distress, no accessory muscle use Abdomen: normal bowel sounds, non tender, soft, no organomegaly, no mass Extremities: normal range of motion Neurologic: no motor/sensory deficits, other - dysarthria Skin: normal pigmentation Laboratory Tests Test 10/20/16 11:30 10/20/16 20:15 10/21/16 07:35 Uric Acid 8.6 mg/dL (3.0-7.5) H Total Creatine Kinase 61 U/L (26-140) Urine Color Pale yellow Urine Appearance Clear Urine pH 6 (4.5-8.0) Urine Specific [place] 1.010 (1.005-1.035) Urine Protein 1+ (NEGATIVE) H Urine Glucose (UA) Negative (NEGATIVE) Urine Ketones Negative (NEGATIVE) Urine Occult Blood 1+ (NEGATIVE) H Urine Nitrite Negative (NEGATIVE) Urine Bilirubin Negative (NEGATIVE) Urine Urobilinogen Normal MG/DL (0.0-1.0) Urine Leukocyte Esterase 2+ (NEGATIVE) H Urine RBC 0-2 /HPF (0 - 2) Urine WBC 5-10 /HPF (0 - 2) H Urine Squamous Epithelial Cells Few /LPF (NONE/OCC) Urine Bacteria Few /HPF (NONE) Urine Eosinophils None seen Urine Random Sodium 39 mmol/L Urine Potassium Timed 52 mmol/L White Blood Count 4.3 K/UL (4.8-10.8) L Red Blood Count 3.31 M/UL (4.20-5.40) L Hemoglobin 10.6 G/DL (12.0-16.0) L Hematocrit 32.4 % (37.0-47.0) L Mean Corpuscular Volume 98 FL (80-99) Mean Corpuscular Hemoglobin 32.1 PG (27.0-31.0) H Mean Corpuscular Hemoglobin Concent 32.7 G/DL (32.0-36.0) Red Cell Distribution Width 12.6 % (11.6-14.8) Platelet Count 119 K/UL (150-450) L Mean Platelet Volume 8.3 FL (6.5-10.1) Neutrophils (%) (Auto) 60.3 % (45.0-75.0) Lymphocytes (%) (Auto) 26.0 % (20.0-45.0) Monocytes (%) (Auto) 6.2 % (1.0-10.0) Eosinophils (%) (Auto) 6.4 % (0.0-3.0) H Basophils (%) (Auto) 1.1 % (0.0-2.0) Sodium Level 143 mEQ/L (135-145) Potassium Level 3.9 mEQ/L (3.4-4.9) Chloride Level 103 mEQ/L (98-107) Carbon Dioxide Level 26 mEQ/L (20-30) Anion Gap 14 (5-15) Blood Urea Nitrogen 29 mg/dL (7-23) H Creatinine 1.3 mg/dL (0.5-0.9) H Estimat Glomerular Filtration Rate mL/min (>60) Glucose Level 91 mg/dL (74-106) Calcium Level 8.5 mg/dL (8.6-10.2) L Intake and Output 10/20/16 10/21/16 19:00 07:00 Intake Total 520 ml 600 ml Balance 520 ml 600 ml Intake Oral 520 ml IV Total 600 ml # Voids 3 2 # Bowel Movements 2 Assessment/Plan Problem List: (1) Small bowel obstruction Assessment & Plan: Resolving; Tolerating diet (2) Incarcerated left inguinal hernia Assessment & Plan: S/P reduction. See srugery note. Non surgical (3) Hypertension Assessment & Plan: Continue labetalol (4) Seizure disorder Assessment & Plan: Cont keppra (5) Intractable abdominal pain Assessment & Plan: resolving Status: progressing Assessment/Plan Discharge planning RICO OLSON Oct 21, 2016 10:28
[2016-10-21] MEDS: OLANZapine 2.5mg tab ORAL SCH (10:44)
[2016-10-21] MEDS: Aspirin Baby 81mg ORAL SCH (10:44)
[2016-10-21 11:17] VITALS: BP 102/62
--- NOTE | 2016-10-21 12:36 | Pulmonology Progress Note ---
Assessment/Plan Problems: (1) Intractable abdominal pain (2) Intractable nausea and vomiting (3) HTN (hypertension) (4) History of CVA (cerebrovascular accident) Assessment/Plan improving surgical note reviewed dc home with f/u with surgeon Subjective ROS Limited/Unobtainable: No Constitutional: Reports: no symptoms HEENT: Repors: no symptoms Respiratory: Reports: no symptoms Cardiovascular: Reports: no symptoms Allergies: Coded Allergies: No Known Allergies (Unverified , 10/19/16) Objective Last 24 Hour Vital Signs Date Time Temp Pulse Resp B/P Pulse Ox O2 Delivery O2 Flow Rate FiO2 10/21/16 11:17 96.5 64 18 102/62 96 Nasal Cannula 2.0 10/21/16 10:44 64 111/61 10/21/16 08:09 98 Nasal Cannula 2.0 10/21/16 08:09 Nasal Cannula 2.0 10/21/16 08:09 65 18 Nasal Cannula 2.0 10/21/16 08:00 62 10/21/16 07:37 96.3 64 18 111/61 99 Nasal Cannula 2.0 10/21/16 04:00 97.9 58 16 98/53 95 Nasal Cannula 2.0 28 10/21/16 04:00 56 10/21/16 00:00 97.9 67 18 94/55 93 Nasal Cannula 2.0 10/21/16 00:00 69 10/20/16 20:00 97.9 77 20 98/56 93 Nasal Cannula 2.0 10/20/16 20:00 77 10/20/16 19:30 94 Nasal Cannula 2.0 10/20/16 19:30 Nasal Cannula 2.0 10/20/16 19:30 74 20 Nasal Cannula 2.0 10/20/16 16:00 97.3 88 17 111/51 95 Room Air 10/20/16 16:00 95 Intake and Output 10/20/16 10/21/16 19:00 07:00 Intake Total 520 ml 600 ml Balance 520 ml 600 ml Intake Oral 520 ml IV Total 600 ml # Voids 3 2 # Bowel Movements 2 General Appearance: WD/WN HEENT: normocephalic, anicteric Respiratory/Chest: chest wall non-tender, normal breath sounds Cardiovascular: normal peripheral pulses, regular rhythm Abdomen: normal bowel sounds, soft, non tender Extremities: no clubbing 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 Laboratory Tests 10/20/16 20:15: Urine Color Pale yellow, Urine Appearance Clear, Urine pH 6, Urine Specific [place] 1.010, Urine Protein 1+H, Urine Glucose (UA) Negative, Urine Ketones Negative, Urine Occult Blood 1+H, Urine Nitrite Negative, Urine Bilirubin Negative, Urine Urobilinogen Normal, Urine Leukocyte Esterase 2+H, Urine RBC 0-2 , Urine WBC 5-10H, Urine Squamous Epithelial Cells Few, Urine Bacteria Few, Urine Eosinophils None seen, Urine Random Sodium 39, Urine Potassium Timed 52 10/21/16 07:35: White Blood Count 4.3L, Red Blood Count 3.31L, Hemoglobin 10.6L, Hematocrit 32.4L, Mean Corpuscular Volume 98, Mean Corpuscular Hemoglobin 32.1H, Mean Corpuscular Hemoglobin Concent 32.7, Red Cell Distribution Width 12.6, Platelet Count 119L, Mean Platelet Volume 8.3, Neutrophils (%) (Auto) 60.3, Lymphocytes ( %) (Auto) 26.0, Monocytes (%) (Auto) 6.2, Eosinophils (%) (Auto) 6.4H, Basophils (%) (Auto) 1.1, Sodium Level 143, Potassium Level 3.9, Chloride Level 103, Carbon Dioxide Level 26, Anion Gap 14, Blood Urea Nitrogen 29H, Creatinine 1.3H, Estimat Glomerular Filtration Rate , Glucose Level 91, Calcium Level 8.5L Current Medications Medications (Trade) Dose Ordered Sig/Lolly Route PRN Reason Start Time Stop Time Status Last Admin Dose Admin Acetaminophen (Tylenol) 650 mg Q4H PRN ORAL FEVER 10/19/16 22:00 11/18/16 21:59 Albuterol/ Ipratropium (DuoNeb 0.5-3(2.5)mg/3ml) 3 ml EVERY 4 HOURS PRN HHN Shortness of Breath 10/19/16 22:00 10/24/16 21:59 Aspirin (ASA) 162 mg DAILY ORAL 10/20/16 09:00 11/19/16 08:59 10/21/16 10:44 Dextrose/Sodium Chloride (D5 0.45% NS) 1,000 ml @ 50 mls/hr Q20H IV 10/19/16 22:00 11/18/16 21:59 10/20/16 18:05 Heparin Sodium (Porcine) 5000 units 5,000 units EVERY 12 HOURS SUBQ 10/20/16 09:00 11/19/16 08:59 Ketorolac Tromethamine (Toradol 30mg) 30 mg Q6HR PRN IV moderate pain ( 4-6) 10/19/16 23:15 10/24/16 21:59 Labetalol HCl (Normodyne) 100 mg Q12HR ORAL 10/21/16 11:00 11/20/16 10:59 10/21/16 10:44 Levetiracetam (Keppra) 1,000 mg TWICE A DAY ORAL 10/20/16 18:00 11/19/16 17:59 10/21/16 10:44 Morphine Sulfate (Morphine Sulfate) 2 mg EVERY 4 HOURS PRN IVP severe Pain (Pain Scale 7-10) 10/19/16 22:00 10/26/16 21:59 Nitroglycerin (Ntg) 0.4 mg Every 5 Minutes PRN SL Prn Chest Pain 10/19/16 22:00 11/18/16 21:59 Olanzapine (ZyPREXA) 2.5 mg DAILY ORAL 10/20/16 14:00 11/19/16 13:59 10/21/16 10:44 Ondansetron HCl (Zofran) 4 mg Q6H PRN IVP Nausea & Vomiting 10/19/16 22:00 11/18/16 21:59 Pantoprazole (Protonix) 40 mg DAILY ORAL 10/20/16 09:00 11/19/16 08:59 10/21/16 10:44 Polyethylene Glycol (Miralax) 17 gm DAILYPRN PRN ORAL Constipation 10/19/16 22:00 11/18/16 21:59 Temazepam (Restoril) 15 mg HSPRN PRN ORAL Insomnia 10/19/16 22:00 10/26/16 21:59 AVA LANDON Oct 21, 2016 12:36
[2016-10-21] MEDS: D5 1/2NS 1,000 ML IV SCH ×2 (14:00→17:54)
--- NOTE | 2016-10-21 15:09 | Cardiology Report ---
APPROVED REPORT EKG Measurement Heart [id number] Sinus rhythm with 1st degree AV block Pulmonary disease pattern Left anterior fascicular block Left ventricular hypertrophy with repolarization abnormality Cannot rule out Septal infarct, age undetermined Abnormal ECG
[2016-10-21 15:25] VITALS: BP 95/51
[2016-10-21] MEDS ORDERED: Nitroglycerin Subl 0.4mg tab (Bottle Of 25) SL PRN (16:45)
[2016-10-21] MEDS ORDERED: Morphine Sulfate 2mg/ml Inj IVP PRN (17:00)
[2016-10-21] MEDS ORDERED: DuoNeb 0.5-3(2.5)mg/3ml neb HHN PRN (17:00)
[2016-10-21] MEDS ORDERED: Miralax 17gm pkt ORAL PRN (17:49)
[2016-10-21] MEDS ORDERED: Ketorolac 30mg Inj IV PRN (18:00)
[2016-10-21 20:00] VITALS: BP 103/54
[2016-10-22] VITALS: BP 108/57
[2016-10-22 04:00] VITALS: BP 118/78
[2016-10-22 08:05] LABS: BASOPHILS % (AUTO) 0.6 % (0.0-2.0); EOSINOPHILS % (AUTO) 5.9 % (0.0-3.0); LYMPHOCYTES % (AUTO) 23.9 % (20.0-45.0); MEAN CORPUSCULAR HEMOGLOBIN 32.8 PG (27.0-31.0); MEAN CORPUSCULAR HGB CONC 33.7 G/DL (32.0-36.0); MEAN CORPUSCULAR VOLUME 97 FL (80-99); MEAN PLATELET VOLUME 6.6 FL (6.5-10.1); MONOCYTES % (AUTO) 5.7 % (1.0-10.0); NEUTROPHILS % (AUTO) 63.9 % (45.0-75.0); PLATELET COUNT 123 K/UL (150-450); RED BLOOD COUNT 3.34 M/UL (4.20-5.40); RED CELL DISTRIBUTION WIDTH 12.3 % (11.6-14.8); WHITE BLOOD COUNT 5.4 K/UL (4.8-10.8)
[2016-10-22 08:23] VITALS: BP 153/70
[2016-10-22 08:27] LABS: ANION GAP 10 (5-15); CALCIUM 8.9 mg/dL (8.6-10.2); CARBON DIOXIDE 29 mEQ/L (20-30); CHLORIDE 105 mEQ/L (98-107); CREATININE 1.1 mg/dL (0.5-0.9); HEMOLYSIS 13; POTASSIUM 3.9 mEQ/L (3.4-4.9); SODIUM 144 mEQ/L (135-145)
[2016-10-22] MEDS: Heparin 5000 units/ml inj SUBQ SCH (08:27)
[2016-10-22] MEDS ORDERED: OLANZapine 2.5mg tab ORAL SCH (09:00)
[2016-10-22] MEDS ORDERED: Aspirin Baby 81mg ORAL SCH (09:00)
--- NOTE | 2016-10-22 10:55 | General Progress Note ---
Progress Note Progress Note Patient being followed for ventral herniae. Had presented with incareration that was reduced. her decision regarding repair of herniae is still pending discussion with her family. Comfortable, NAD Afebrile Abdomen soft right lower quadrant hernia kpresent and remains reducible Laboratory Tests Test 10/22/16 06:15 White Blood Count 5.4 K/UL (4.8-10.8) Red Blood Count 3.34 M/UL (4.20-5.40) L Hemoglobin 11.0 G/DL (12.0-16.0) L Hematocrit 32.5 % (37.0-47.0) L Mean Corpuscular Volume 97 FL (80-99) Mean Corpuscular Hemoglobin 32.8 PG (27.0-31.0) H Mean Corpuscular Hemoglobin Concent 33.7 G/DL (32.0-36.0) Red Cell Distribution Width 12.3 % (11.6-14.8) Platelet Count 123 K/UL (150-450) L Mean Platelet Volume 6.6 FL (6.5-10.1) Neutrophils (%) (Auto) 63.9 % (45.0-75.0) Lymphocytes (%) (Auto) 23.9 % (20.0-45.0) Monocytes (%) (Auto) 5.7 % (1.0-10.0) Eosinophils (%) (Auto) 5.9 % (0.0-3.0) H Basophils (%) (Auto) 0.6 % (0.0-2.0) Sodium Level 144 mEQ/L (135-145) Potassium Level 3.9 mEQ/L (3.4-4.9) Chloride Level 105 mEQ/L (98-107) Carbon Dioxide Level 29 mEQ/L (20-30) Anion Gap 10 (5-15) Blood Urea Nitrogen 20 mg/dL (7-23) Creatinine 1.1 mg/dL (0.5-0.9) H Estimat Glomerular Filtration Rate mL/min (>60) Glucose Level 90 mg/dL (74-106) Calcium Level 8.9 mg/dL (8.6-10.2) Await decision regarding repair of herniae CIRA ALMEIDA Oct 22, 2016 10:55
[2016-10-22 11:20] VITALS: BP 109/56
[2016-10-22] MEDS: D5 1/2NS 1,000 ML IV SCH (13:02)
--- NOTE | 2016-10-22 15:38 | Internal Med Progress Note ---
Subjective Date of Service: Oct 22, 2016 Physician Name Armen Olson Attending Physician Macario Dunbar MD Current Medications Medications (Trade) Dose Ordered Sig/Lolly Route PRN Reason Start Time Stop Time Status Last Admin Dose Admin Acetaminophen (Tylenol) 650 mg Q4H PRN ORAL FEVER 10/21/16 18:00 11/20/16 17:59 Albuterol/ Ipratropium (DuoNeb 0.5-3(2.5)mg/3ml) 3 ml Q4H PRN HHN Shortness of Breath 10/21/16 17:00 10/26/16 16:59 Aspirin (ASA) 162 mg DAILY ORAL 10/22/16 09:00 11/21/16 08:59 10/22/16 08:26 Dextrose/Sodium Chloride (D5 0.45% NS) 1,000 ml @ 50 mls/hr Q20H IV 10/21/16 18:00 11/20/16 17:59 Heparin Sodium (Porcine) (Heparin 5000 units/ml) 5,000 units EVERY 12 HOURS SUBQ 10/21/16 21:00 11/20/16 20:59 Labetalol HCl (Normodyne) 100 mg Q12HR ORAL 10/21/16 21:00 11/20/16 20:59 10/22/16 08:26 Levetiracetam (Keppra) 1,000 mg Q12HR ORAL 10/21/16 21:00 11/20/16 20:59 10/22/16 08:26 Morphine Sulfate (Morphine Sulfate) 2 mg Q4H PRN IVP severe Pain (Pain Scale 7-10) 10/21/16 17:00 10/28/16 16:59 Nitroglycerin (Ntg) 0.4 mg Every 5 Minutes PRN SL Prn Chest Pain 10/21/16 16:45 11/20/16 16:44 Olanzapine (ZyPREXA) 2.5 mg DAILY ORAL 10/22/16 09:00 11/21/16 08:59 10/22/16 08:26 Ondansetron HCl (Zofran) 4 mg Q6H PRN IVP Nausea & Vomiting 10/21/16 17:49 11/20/16 17:48 Pantoprazole (Protonix) 40 mg DAILY ORAL 10/22/16 09:00 11/21/16 08:59 10/22/16 08:26 Polyethylene Glycol (Miralax) 17 gm DAILYPRN PRN ORAL Constipation 10/21/16 17:49 11/20/16 17:48 Temazepam (Restoril) 15 mg HSPRN PRN ORAL Insomnia 10/21/16 17:49 10/28/16 17:48 Allergies: Coded Allergies: No Known Allergies (Unverified , 10/19/16) ROS Limited/Unobtainable: No Constitutional: Reports: no symptoms HEENT: Reports: no symptoms Cardiovascular: Reports: no symptoms Respiratory: Reports: no symptoms Gastrointestinal/Abdominal: Reports: no symptoms Genitourinary: Reports: no symptoms Neurologic/Psychiatric: Reports: no symptoms Subjective 81 YO F admitted with small bowel obstruction. Cover for [facility] Med-Dr Dunbar. Await discharge home. Objective Last Vital Signs Date Time Temp Pulse Resp B/P Pulse Ox O2 Delivery O2 Flow Rate FiO2 10/22/16 11:20 97.5 67 18 109/56 98 Nasal Cannula 2.0 10/22/16 08:22 21 Laboratory Tests Test 10/22/16 06:15 White Blood Count 5.4 K/UL (4.8-10.8) Red Blood Count 3.34 M/UL (4.20-5.40) L Hemoglobin 11.0 G/DL (12.0-16.0) L Hematocrit 32.5 % (37.0-47.0) L Mean Corpuscular Volume 97 FL (80-99) Mean Corpuscular Hemoglobin 32.8 PG (27.0-31.0) H Mean Corpuscular Hemoglobin Concent 33.7 G/DL (32.0-36.0) Red Cell Distribution Width 12.3 % (11.6-14.8) Platelet Count 123 K/UL (150-450) L Mean Platelet Volume 6.6 FL (6.5-10.1) Neutrophils (%) (Auto) 63.9 % (45.0-75.0) Lymphocytes (%) (Auto) 23.9 % (20.0-45.0) Monocytes (%) (Auto) 5.7 % (1.0-10.0) Eosinophils (%) (Auto) 5.9 % (0.0-3.0) H Basophils (%) (Auto) 0.6 % (0.0-2.0) Sodium Level 144 mEQ/L (135-145) Potassium Level 3.9 mEQ/L (3.4-4.9) Chloride Level 105 mEQ/L (98-107) Carbon Dioxide Level 29 mEQ/L (20-30) Anion Gap 10 (5-15) Blood Urea Nitrogen 20 mg/dL (7-23) Creatinine 1.1 mg/dL (0.5-0.9) H Estimat Glomerular Filtration Rate mL/min (>60) Glucose Level 90 mg/dL (74-106) Calcium Level 8.9 mg/dL (8.6-10.2) Intake and Output 10/21/16 10/22/16 19:00 07:00 Intake Total 860 ml Output Total 800 ml Balance 60 ml Intake Oral 660 ml IV Total 200 ml Output Urine Total 800 ml # Voids 1 3 Objective General Appearance: WD/WN, no apparent distress, alert EENT: PERRL/EOMI, normal ENT inspection Neck: non-tender, normal alignment, supple, normal inspection Cardiovascular: normal peripheral pulses, normal rate, regular rhythm, no gallop/murmur, no JVD Respiratory/Chest: chest wall non-tender, lungs clear, normal breath sounds, no respiratory distress, no accessory muscle use Abdomen: normal bowel sounds, non tender, soft, no organomegaly, no mass Extremities: normal range of motion Neurologic: no motor/sensory deficits, other - dysarthria Skin: normal pigmentation Assessment/Plan Problem List: (1) Small bowel obstruction Assessment & Plan: Resolving; Tolerating diet (2) Incarcerated left inguinal hernia Assessment & Plan: S/P reduction. See ugery note. Non surgical (3) Hypertension Assessment & Plan: Continue labetalol (4) Seizure disorder Assessment & Plan: Cont keppra (5) Intractable abdominal pain Assessment & Plan: resolving Status: stable Assessment/Plan Discharge home today. F/U Dr Garza in 1 week ARMEN OLSON Oct 22, 2016 15:38
[2016-10-22 15:40] VITALS: BP 111/61
[2016-10-22] MEDS ORDERED: D5 1/2NS 1000ml IV ONE (16:19)
--- NOTE | 2016-10-23 09:49 | Discharge Summary ---
Discharge Summary Hospital Course Date of Admission Oct 19, 2016 at 20:42 Date of Discharge Oct 22, 2016 at 16:20 Admitting Diagnosis ABD PAIN/ ACS/ ARF HPI Chantalfir Herber is a 81 year old female who was admitted on Oct 19, 2016 at 20: 42 for Abdominal Pain,Acute Coronary Syndrome Hospital Course [id number] Discharge Discharge Disposition Patient was discharged to Home with Home Health(06) Discharge Diagnoses: Carol Hernandez NP Oct 23, 2016 09:49
--- NOTE | 2016-10-23 22:46 | Discharge Summary 2 SIG ---
DATE OF ADMISSION: 10/19/2016 DATE OF DISCHARGE: 10/22/2016 CONSULTANTS: 1. Lv Nguyễn M.D. 2. Gian Duran M.D. BRIEF HOSPITAL COURSE: The patient is an 81-year-old white female who presented with chief complaint of abdominal pain. On evaluation at ED, laboratories showed no leukocytosis. BUN and creatinine were elevated. EKG showed normal sinus rhythm. CT of the abdomen and pelvis done showed multiple hernias with small bowel obstruction with transition point in the right lower quadrant. The patient refused NG tube insertion. Hernia was reduced by the ED doctor. The patient was admitted for further management. She underwent a surgical evaluation. Incarcerated hernia in the right lower quadrant from an old midline incision with mesh repair in the past was successfully reduced by the ED doctor. Her renal functions were elevated and was given IV hydration. Diet was advanced. The patient had two bowel movements with no nausea and vomiting. Abdomen remained soft and nontender with a chronically partially incarcerated right hernia in the lateral abdomen, right inguinal reducible hernia. It was recommended that she eventually would need hernia repair. The patient would like to talk to son about it. She was tolerating diet well and was eventually discharged home. Advised to follow up with Dr. Garza in a week. DISPOSITION: Discharge home with home health. FINAL DIAGNOSES: 1. Small bowel obstruction secondary to incarcerated ventral hernia, status post reduction. 2. Hypertension. 3. Seizure disorder. 4. Intractable abdominal pain. 5. Hypertension. 6. Acute renal failure, improved. Armen Helms M.D. I have been assigned to dictate discharge summary on this account and I was not involved in the patient's management. Carol Hernandez N.P. DR: Senait JOB#: [id number] CC: CHRISTOPHER
== END 2016-10-22 16:20 | disposition home health service (06) | DRG 394 ==
LOC: EDBD 17:52 → EMR 20:24 → 2E 20:42 → EMR 23:09 → EDBEDREQ 23:38 → 4W 10-21 16:58
DX: K43.6 Other and unspecified ventral hernia with obstruction, without gangrene (principal); N17.9 Acute kidney failure, unspecified; I10 Essential (primary) hypertension; J45.909 Unspecified asthma, uncomplicated; K57.90 Diverticulosis of intestine, part unspecified, without perforation or abscess without bleeding; Z86.73 Personal history of transient ischemic attack (TIA), and cerebral infarction without residual deficits; G40.909 Epilepsy, unspecified, not intractable, without status epilepticus
CPT/HCPCS: 36415; 74020; 74176; 76775; 80048; 80053; 80299; 81001; 81003; 82550; 82553; 83690; 84133; 84300; 84484; 84550; 85025; 89050; 93005; 93306; 94664; 94760; J2405